=== PATIENT | male | born 1955 | race Caucasian/White ===

== ENCOUNTER 2019-04-30 13:48 | Emergency (ER) | payer OTHER ==
[2019-04-30] MEDS ORDERED: IBUPROFEN 400 MG TAB ONE (14:33)
[2019-04-30] MEDS ORDERED: HYDROCODONE/APAP 7.5/325 MG TAB ONE (14:33)
[2019-04-30] MEDS ORDERED: ONDANSETRON 4 MG (ODT) TAB ONE (14:33)
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
--- NOTE | 2019-04-30 15:04 | RAD REPORT ---
EXAM DESCRIPTION: RAD - Shoulder Left 2 View - 04/30/2019 2:44 pm CLINICAL HISTORY: Left shoulder pain status post fall FINDINGS: The AC joint is widened with elevation of the distal left clavicle consistent with a ligam entous sprain. Mild widening of coracoclavicular space may indicate an additional ligamentous injury No fracture is seen
[2019-04-30 15:10] VITALS: BP 136/88; TEMP 98.1; O2SAT 100
== END 2019-04-30 15:03 | disposition home or self-care (01) ==
LOC: ER 13:48
DX: S43.102A Unspecified dislocation of left acromioclavicular joint, initial encounter (principal); W17.89XA Other fall from one level to another, initial encounter; Y93.89 Activity, other specified; Y92.9 Unspecified place or not applicable; Z79.01 Long term (current) use of anticoagulants; Z86.718 Personal history of other venous thrombosis and embolism
CPT/HCPCS: 99284

== ENCOUNTER 2021-08-16 11:26 | Emergency (ER) | payer BC, OTHER ==
--- OUTSIDE RECORDS SUMMARY | 2021-08-16 11:27 | XMS REPORT | Continuity of Care Document ---
:1955 Author Organization [facility] t Address [address] [place] [address] Dr. P[address] [place] [address] Care Team Providers Name Role Phone SHARPLESS Primary Care Physician Unavailable Curt ALEXANDRE Attending Clinician Unavailable AVTAR Attending Clinician Unavailable GIULIANA Attending Clinician Unavailable Curt ALEXANDRE Admitting Clinician Unavailable Payers Payer Name Policy Type Policy Number Effective Date Expiration Date S ource [facility] [id number] 2012 2012 SELECT CHOICE 00:00:00 00:00:00 UNITED MEDICARE [id number] 2020 HMO 00:00:00 CHOICE/CHOICE [id number] PLUS/OPTIONS PPO - [facility] GENERIC MEDICARE [id number] ADVANTAGE PPO Problems This patient has no known problems. Allergies, Adverse Reactions, Alerts Allergy Allergy Status Severity Reaction(s) Onset Inactive Treating Comm ents Source Name Type Date Date Clinician LAYNE Allergy Active Low Swelling [facility] 4-26 00:00: 00 SEASONAL Allergy Active Low Other [facility] ALLERGIE 4-26 S 00:00: 00 NO KNOWN Allergy Active [facility] ALLERGIE S Medications This patient has no known medications. Procedures This patient has no known procedures. Encounters Start End Encounter Admission Attending Care Care Encounter Source Date/Time Date/Time Type Type Clinicians Facility Department ID 2021-05-11 Outpatient [facility] [id number] [facility] 14:44:41 A, MARY 2021-05-10 Outpatient JAMES-PADDY [facility] Surgery [id number] [facility] 17:45:16 A, MARY 2021-03-20 2021-03-20 Outpatient MYRIAMFROILANMELISSANiesha [facility] [id number] [facility] 09:47:56 11:37:04 MEJIA Perez Medicin e 2020-01-16 2020-01-[address] [facility] [id number] [place] 00:00:00 00:00:00 XIMENA [address]Joseph Method i [facility] Results This patient has no known results.
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
--- NOTE | 2021-08-16 14:02 | EDPHYS ---
Physician Documentation [facility] Name: Juancho Blackmon Age: 65 yrs Sex: Male : 1955 Arrival Date: 08/16/2021 Time: 11:28 Bed 16 Private MD: ED Physician Kush Landon HPI: 08/16 12:48 This 65 yrs old Male presents to ER via Ambulatory with complaints of Leg Swelling. jmm 12:48 The patient presents with pain, that is acute. Onset: The symptoms/episode jmm began/occurred gradually, 1 week(s) ago. Modifying factors: The symptoms are alleviated by nothing. the symptoms are aggravated by nothing. Associated signs and symptoms: Pertinent positives: calf tenderness, Pertinent negatives fever. This is a 65 year old male with a history of dvt, htn that presents to the ED with complaints of left leg swelling, which occurred after a road trip this past weekend. Denies fever, chest pain, and shortness of breath. . Historical: - Allergies: 12:27 No Known Allergies; vg1 - Home Meds: 12:27 Eliquis Oral [Active]; vg1 - PMHx: 12:27 DVT; Hepatitis; Occular Hypertension; vg1 - PSHx: 12:27 Facial Reconstution; vg1 - Immunization history:: Client reports receiving the 2nd dose of the Covid vaccine. - Social history:: Smoking status: Patient denies any tobacco usage or history of. ROS: 12:48 Constitutional: Negative for fever, chills, and weight loss, Cardiovascular: Negative jmm for chest pain, palpitations, and edema, Respiratory: Negative for shortness of breath, cough, wheezing, and pleuritic chest pain. 12:48 MS/extremity: Positive for pain, swelling. 12:48 All other systems are negative. Exam: 12:48 Constitutional: This is a well developed, well nourished patient who is awake, alert, jmm and in no acute distress. Head/Face: atraumatic. Eyes: EOMI, no conjunctival erythema appreciated ENT: Moist Mucus Membranes Neck: Trachea midline, Supple Chest/axilla: Normal chest wall appearance and motion. Cardiovascular: Regular rate and rhythm. No edema appreciated Respiratory: Normal respirations, no respiratory distress appreciated Abdomen/GI: Non distended, soft Back: Normal ROM Skin: General appearance color normal 12:48 Musculoskeletal/extremity: swelling noted to the left leg, full dorsalis pulse, compartments are soft, NVI. 12:48 Skin: Appearance: Color: normal in color. 12:48 Neuro: Orientation: is normal, Mentation: is normal, Memory: is normal. 12:48 Psych: Behavior/mood is pleasant, cooperative. Vital Signs: 12:24 BP 136 / 86; Pulse 64; Resp 16; Temp 98.4; Pulse Ox 100% ; Weight 72.57 kg; Height 5 vg1 ft. 11 in. (180.34 cm); Pain 0/10; 12:46 BP 144 / 74; Pulse 68; Resp 16; Pulse Ox 98% ; Pain 3/10; cb5 14:15 BP 138 / 73; Pulse 78; Resp 16; Temp 98.6; Pulse Ox 98% ; Pain 0/10; cb5 12:24 Body Mass Index 22.32 (72.57 kg, 180.34 cm) vg1 MDM: 12:48 Patient medically screened. deidre 13:59 Data reviewed: vital signs, nurses notes. Counseling: I had a detailed discussion with eulalio the patient and/or guardian regarding: the historical points, exam findings, and any diagnostic results supporting the discharge/admit diagnosis, radiology results, the need for outpatient follow up, to return to the emergency department if symptoms worsen or persist or if there are any questions or concerns that arise at home. Refusal of service: The patient/guardian displays adequate decision making capability and despite a detailed discussion of alternatives, benefits, risks, and consequences refuses: Admission to the hospital for further work-up and treatment. ED course: Patient has no cp or sob. I do not suspect PE. Will treat with eliquis. Patient advised to follow up with pcp and otherwise given strict return precautions. Patient understood and agrees with the plan of care. . 08/16 12:49 Order name: US Extremity Venous Unilateral Ltd; Complete Time: 14:08 eulalio Administered Medications: No medications were administered Disposition: 18:00 Co-signature as Attending Physician, Kush Landon MD I agree with the assessment and kdr plan of care. Disposition Summary: 08/16/21 14:02 Discharge Ordered Location: Home [facility] Condition: Stable deidre Diagnosis - Acute embolism and thrombosis of other specified deep vein of left lower extremity [facility] Followup: eulalio - With: Private Physician - When: 2 - 3 days - Reason: Recheck today's complaints, Continuance of care, Re-evaluation by your physician Discharge Instructions: - Discharge Summary Sheet [facility] - Deep Vein Thrombosis [facility] Forms: - Medication Reconciliation Form deidre - Thank You Letter eulalio - Antibiotic Education deidre - Prescription Opioid Use deidre Prescriptions: - Eliquis DVT-PE Treat 30D Start 5 mg (74 tabs) Oral tablets,dose pack - take 1 application by ORAL route as directed take 10 mg PO BID for 7 days. jmm Then take 5 mg PO BID daily.; 74 tablet; Refills: 0, Product Selection Permitted Signatures: Dispatcher [employer] Kush Humphreys MD MD kdr Mickail, Joel, PA PA jmm Garcia, Victoria, RN RN vg1
--- NOTE | 2021-08-16 14:06 | RAD REPORT ---
EXAM DESCRIPTION: [facility] Ven[facility] Uni Ltd08/16/2021 1:35 pm CLINICAL HISTORY: left leg pain and swelling. COMPARISON: None. FINDINGS: Echogenic material consistent with acute thrombus is present within the popliteal and 2 po sterior tibial veins. Veins did not compressed. Left common femoral, superficial femoral veins are compressible and demonstrate augmentation. Doppler demonstrates good flow. Grayscale, color and spectral analysis performed on all vessels IMPRESSION: Acute thrombus left popliteal and posterior tibial veins
[2021-08-16 14:33] VITALS: O2SAT 98
[2021-08-16 14:35] VITALS: BP 138/73; TEMP 98.6
== END 2021-08-16 14:22 | disposition home or self-care (01) ==
LOC: ER 11:26
DX: I82.402 Acute embolism and thrombosis of unspecified deep veins of left lower extremity (principal); I10 Essential (primary) hypertension; Z86.718 Personal history of other venous thrombosis and embolism; Z79.01 Long term (current) use of anticoagulants
CPT/HCPCS: 93971; 99283